=== PATIENT | male | born 1935 | race Caucasian/White ===

== ENCOUNTER 2020-03-05 13:48 | Inpatient (IN) ==
[2020-03-05] MEDS ORDERED: Naloxone 0.4 MG/ML INJ IVP PRN (17:18)
[2020-03-05 18:44] LABS: ABG Base Excess 13 mEq/L (-2 to 3); ABG HCO3 42 mEq/L (21-27); ABG Oxygen Saturation 100 % (95-98); ABG PCO2 87 mmHg (35-45); ABG PH 7.29 pH Units (7.32-7.45); ABG PO2 235 mmHg (85-104); ABG TCO2 45 mEq/L (20-26)
[2020-03-05] MEDS: Ipratropium/Albuterol Neb 3 ML IH SCH (20:21)
[2020-03-05] MEDS: Doxycycline 100 MG CAPSULE PO SCH (21:44)
[2020-03-05] MEDS: methylPREDNISolone 125 MG/2 ML VIAL IVP SCH (23:29)
[2020-03-06] MEDS: Ipratropium/Albuterol Neb 3 ML IH SCH ×7 (00:13→23:08)
[2020-03-06 00:26] LABS: ABG Base Excess 10 mEq/L (-2 to 3); ABG HCO3 39 mEq/L (21-27); ABG Oxygen Saturation 99 % (95-98); ABG PCO2 83 mmHg (35-45); ABG PH 7.28 pH Units (7.32-7.45); ABG PO2 183 mmHg (85-104); ABG TCO2 41 mEq/L (20-26); Blood Gas Pressure Support 8 cm H2O
[2020-03-06 05:19] LABS: Hemoglobin 10.6 g/dL (12.9-16.9); Immature Granulocytes % 0.4 % (0-4); Lymphocytes # 0.4 K/mcL (0.6-4.6); Lymphocytes % 12.5 %; Mean Corpuscular HGB Conc 30.3 g/dL (31.6-35.5); Mean Corpuscular Hemoglobin 30.8 pg (28.0-33.3); Mean Corpuscular Volume 101.7 fL (83.0-100.0); Mean Platelet Volume 9.7 fL (9.4-12.4); Monocytes % 1.1 %; Neutrophils # 2.4 K/mcL (1.6-8.9); Platelet Count 214 K/mcL (140-400); Red Blood Count 3.44 M/mcL (4.19-5.50); Red Cell Distribution Width 13.1 % (11.5-14.5); White Blood Count 2.8 K/mcL (4.3-11.1)
[2020-03-06 05:40] LABS: BUN/Creatinine Ratio 23 (6-26); Blood Urea Nitrogen 13 mg/dL (8-23); Calcium 9.7 mg/dL (8.6-10.3); Carbon Dioxide 35 mEq/L (23-29); Chloride 102 mEq/L (98-107); Glucose 109 mg/dL (70-105); Osmolality,Calculated 301 (280-300); Potassium 4.4 mEq/L (3.5-5.1); Sodium 145 mEq/L (136-145); eGFR For African Americans > 60 (> 60); eGFR For Non-African Americans > 60 (> 60)
[2020-03-06] MEDS ORDERED: Acetaminophen 325 MG TABLET PO PRN (08:09)
[2020-03-06] MEDS: Doxycycline 100 MG CAPSULE PO SCH ×2 (08:44→19:57)
[2020-03-06] MEDS: amLODIPine 5 MG TABLET PO SCH (08:44)
[2020-03-06] MEDS: Cholecalciferol (D-3) 1,000 UNIT (25MCG) TABLET PO SCH (08:44)
[2020-03-06] MEDS: methylPREDNISolone 125 MG/2 ML VIAL IVP SCH ×3 (08:45→23:41)
[2020-03-06] MEDS: cefTRIAXone 1,000 MG in Water for inj. (sterile) 10 ML IVP SCH (08:45)
[2020-03-06] MEDS: Fluticasone Propionate Nasal 50 MCG/SPRAY BOTTLE NS SCH (08:48)
[2020-03-06] MEDS: (Umeclidinium Brm/Vilanterol Tr [Anoro Ellipta 62.5-2 IH SCH (09:00)
[2020-03-06 20:29] LABS: ABG Base Excess 8 mEq/L (-2 to 3); ABG HCO3 34 mEq/L (21-27); ABG Oxygen Saturation 96 % (95-98); ABG PCO2 49 mmHg (35-45); ABG PH 7.45 pH Units (7.32-7.45); ABG PO2 82 mmHg (85-104); ABG TCO2 35 mEq/L (20-26); Blood Gas Pressure Support 6 cm H2O
[2020-03-07 01:12] LABS: ABG Base Excess 12 mEq/L (-2 to 3); ABG HCO3 37 mEq/L (21-27); ABG Oxygen Saturation 91 % (95-98); ABG PCO2 51 mmHg (35-45); ABG PH 7.47 pH Units (7.32-7.45); ABG PO2 59 mmHg (85-104); ABG TCO2 38 mEq/L (20-26)
[2020-03-07] MEDS: hydrOXYzine pamoate 25 MG CAPSULE PO PRN ×2 (01:22→19:58)
[2020-03-07 01:47] LABS: Hematocrit 29.6 % (37.5-50.1); Hemoglobin 9.5 g/dL (12.9-16.9); Immature Granulocytes % 0.5 % (0-4); Lymphocytes # 0.3 K/mcL (0.6-4.6); Lymphocytes % 5.3 %; Mean Corpuscular HGB Conc 32.1 g/dL (31.6-35.5); Mean Corpuscular Volume 96.7 fL (83.0-100.0); Mean Platelet Volume 9.4 fL (9.4-12.4); Monocytes # 0.1 K/mcL (0.0-1.3); Monocytes % 2.3 %; Neutrophils # 5.2 K/mcL (1.6-8.9); Platelet Count 201 K/mcL (140-400); Red Blood Count 3.06 M/mcL (4.19-5.50); Red Cell Distribution Width 12.8 % (11.5-14.5); Segmented Neutrophils % 91.9 %
[2020-03-07 01:49] LABS: White Blood Count 5.7 K/mcL (4.3-11.1)
[2020-03-07 02:05] LABS: BUN/Creatinine Ratio 44 (6-26); Blood Urea Nitrogen 36 mg/dL (8-23); Carbon Dioxide 33 mEq/L (23-29); Chloride 102 mEq/L (98-107); Glucose 130 mg/dL (70-105); Osmolality,Calculated 302 (280-300); Potassium 3.6 mEq/L (3.5-5.1); Sodium 141 mEq/L (136-145); eGFR For African Americans > 60 (> 60); eGFR For Non-African Americans > 60 (> 60)
[2020-03-07] MEDS: Ipratropium/Albuterol Neb 3 ML IH SCH ×5 (03:52→19:39)
[2020-03-07] MEDS: Cholecalciferol (D-3) 1,000 UNIT (25MCG) TABLET PO SCH (08:34)
[2020-03-07] MEDS: amLODIPine 5 MG TABLET PO SCH (08:34)
[2020-03-07] MEDS: cefTRIAXone 1,000 MG in Water for inj. (sterile) 10 ML IVP SCH (08:35)
[2020-03-07] MEDS: Doxycycline 100 MG CAPSULE PO SCH ×2 (08:35→19:58)
[2020-03-07] MEDS: Fluticasone Propionate Nasal 50 MCG/SPRAY BOTTLE NS SCH (08:36)
[2020-03-07] MEDS: methylPREDNISolone 125 MG/2 ML VIAL IVP SCH (08:36)
[2020-03-07] MEDS: (Umeclidinium Brm/Vilanterol Tr [Anoro Ellipta 62.5-2 IH SCH (08:56)
[2020-03-07] MEDS: MethylPREDNISolone 40 MG/ML VIAL IVP SCH (16:35)
[2020-03-07] MEDS: *HR* Heparin 5,000 UNIT/ML VIAL SQ SCH (16:40)
[2020-03-08] MEDS: Ipratropium/Albuterol Neb 3 ML IH SCH ×7 (00:12→23:19)
[2020-03-08] MEDS: MethylPREDNISolone 40 MG/ML VIAL IVP SCH ×3 (00:21→15:56)
[2020-03-08 03:19] LABS: Hematocrit 31.2 % (37.5-50.1); Hemoglobin 9.6 g/dL (12.9-16.9); Immature Granulocytes % 0.5 % (0-4); Lymphocytes # 0.2 K/mcL (0.6-4.6); Lymphocytes % 3.9 %; Mean Corpuscular HGB Conc 30.8 g/dL (31.6-35.5); Mean Corpuscular Hemoglobin 30.8 pg (28.0-33.3); Mean Platelet Volume 9.4 fL (9.4-12.4); Monocytes # 0.2 K/mcL (0.0-1.3); Monocytes % 2.5 %; Neutrophils # 5.5 K/mcL (1.6-8.9); Platelet Count 185 K/mcL (140-400); Red Blood Count 3.12 M/mcL (4.19-5.50); Red Cell Distribution Width 13.2 % (11.5-14.5); Segmented Neutrophils % 93.1 %; White Blood Count 5.9 K/mcL (4.3-11.1)
[2020-03-08 03:35] LABS: BUN/Creatinine Ratio 51 (6-26); Blood Urea Nitrogen 36 mg/dL (8-23); Calcium 9.3 mg/dL (8.6-10.3); Carbon Dioxide 33 mEq/L (23-29); Chloride 100 mEq/L (98-107); Glucose 108 mg/dL (70-105); Osmolality,Calculated 297 (280-300); Potassium 3.6 mEq/L (3.5-5.1); Sodium 139 mEq/L (136-145); eGFR For African Americans > 60 (> 60); eGFR For Non-African Americans > 60 (> 60)
[2020-03-08] MEDS: *HR* Heparin 5,000 UNIT/ML VIAL SQ SCH ×2 (05:37→17:33)
[2020-03-08] MEDS: Doxycycline 100 MG CAPSULE PO SCH ×2 (08:01→22:23)
[2020-03-08] MEDS: Cholecalciferol (D-3) 1,000 UNIT (25MCG) TABLET PO SCH (08:01)
[2020-03-08] MEDS: cefTRIAXone 1,000 MG in Water for inj. (sterile) 10 ML IVP SCH (08:01)
[2020-03-08] MEDS: amLODIPine 5 MG TABLET PO SCH (08:02)
[2020-03-08] MEDS: Fluticasone Propionate Nasal 50 MCG/SPRAY BOTTLE NS SCH (08:03)
[2020-03-08] MEDS ORDERED: 0.9 % Sodium Chloride 500 ML IVC ONE (12:57)
[2020-03-08] MEDS ORDERED: *HR* Metoprolol 5 MG/5 ML VIAL IVP ONE (17:08)
[2020-03-08] MEDS: hydrOXYzine pamoate 25 MG CAPSULE PO PRN (22:23)
[2020-03-09] MEDS: MethylPREDNISolone 40 MG/ML VIAL IVP SCH ×3 (00:18→16:14)
[2020-03-09] MEDS ORDERED: Melatonin 3 MG TABLET PO ONE (01:04)
[2020-03-09 01:33] LABS: Hematocrit 29.5 % (37.5-50.1); Hemoglobin 9.6 g/dL (12.9-16.9); Immature Granulocytes % 0.7 % (0-4); Lymphocytes % 7.1 %; Mean Corpuscular HGB Conc 32.5 g/dL (31.6-35.5); Mean Corpuscular Hemoglobin 31.4 pg (28.0-33.3); Mean Corpuscular Volume 96.4 fL (83.0-100.0); Mean Platelet Volume 9.5 fL (9.4-12.4); Monocytes % 4.9 %; Platelet Count 198 K/mcL (140-400); Red Blood Count 3.06 M/mcL (4.19-5.50); Red Cell Distribution Width 13.3 % (11.5-14.5); Segmented Neutrophils % 87.2 %
[2020-03-09 01:34] LABS: Basophils % 0.1 %; Lymphocytes # 0.5 K/mcL (0.6-4.6); Monocytes # 0.3 K/mcL (0.0-1.3); Neutrophils # 6.1 K/mcL (1.6-8.9)
[2020-03-09 01:58] LABS: BUN/Creatinine Ratio 48 (6-26); Blood Urea Nitrogen 27 mg/dL (8-23); Calcium 9.7 mg/dL (8.6-10.3); Carbon Dioxide 30 mEq/L (23-29); Chloride 102 mEq/L (98-107); Glucose 102 mg/dL (70-105); Osmolality,Calculated 293 (280-300); Potassium 4.2 mEq/L (3.5-5.1); Sodium 139 mEq/L (136-145); eGFR For African Americans > 60 (> 60); eGFR For Non-African Americans > 60 (> 60)
[2020-03-09] MEDS ORDERED: *HR* LORazepam 2 MG/ML VIAL IVP ONE (02:16)
[2020-03-09] MEDS: Ipratropium/Albuterol Neb 3 ML IH SCH ×5 (03:38→20:09)
[2020-03-09] MEDS ORDERED: flumazeniL 0.5 MG/5 ML VIAL IVP ONE ×2 (04:58→05:00)
[2020-03-09] MEDS: *HR* Heparin 5,000 UNIT/ML VIAL SQ SCH ×2 (06:23→17:56)
[2020-03-09] MEDS: cefTRIAXone 1,000 MG in Water for inj. (sterile) 10 ML IVP SCH (07:59)
[2020-03-09 08:00] LABS: ABG Base Excess 9 mEq/L (-2 to 3); ABG HCO3 35 mEq/L (21-27); ABG Oxygen Saturation 96 % (95-98); ABG PCO2 57 mmHg (35-45); ABG PH 7.41 pH Units (7.32-7.45); ABG PO2 84 mmHg (85-104); ABG TCO2 37 mEq/L (20-26); Blood Gas VT 450 cc
[2020-03-09] MEDS: Doxycycline 100 MG CAPSULE PO SCH (08:03)
[2020-03-09] MEDS: Fluticasone Propionate Nasal 50 MCG/SPRAY BOTTLE NS SCH (08:04)
[2020-03-09] MEDS: amLODIPine 5 MG TABLET PO SCH (08:04)
[2020-03-09] MEDS: Cholecalciferol (D-3) 1,000 UNIT (25MCG) TABLET PO SCH (08:08)
[2020-03-09] MEDS: Doxycycline 100 MG in 0.9 % Sodium Chloride Mini Bag 100 ML IVPB SCH (17:57)
[2020-03-09] MEDS: QUEtiapine Fumarate 25 MG TABLET PO SCH (22:04)
[2020-03-10] MEDS: Ipratropium/Albuterol Neb 3 ML IH SCH ×7 (00:20→23:55)
[2020-03-10] MEDS: MethylPREDNISolone 40 MG/ML VIAL IVP SCH ×3 (00:59→21:05)
[2020-03-10 01:05] LABS: Hematocrit 30.5 % (37.5-50.1); Hemoglobin 9.6 g/dL (12.9-16.9); Immature Granulocytes % 0.3 % (0-4); Lymphocytes # 0.2 K/mcL (0.6-4.6); Lymphocytes % 6.7 %; Mean Corpuscular HGB Conc 31.5 g/dL (31.6-35.5); Mean Corpuscular Hemoglobin 30.9 pg (28.0-33.3); Mean Corpuscular Volume 98.1 fL (83.0-100.0); Mean Platelet Volume 9.1 fL (9.4-12.4); Monocytes # 0.3 K/mcL (0.0-1.3); Monocytes % 7.9 %; Neutrophils # 2.8 K/mcL (1.6-8.9); Platelet Count 180 K/mcL (140-400); Red Blood Count 3.11 M/mcL (4.19-5.50); Red Cell Distribution Width 13.1 % (11.5-14.5); Segmented Neutrophils % 85.1 %
[2020-03-10 01:28] LABS: BUN/Creatinine Ratio 42 (6-26); Blood Urea Nitrogen 23 mg/dL (8-23); Calcium 9.3 mg/dL (8.6-10.3); Carbon Dioxide 33 mEq/L (23-29); Chloride 103 mEq/L (98-107); Glucose 95 mg/dL (70-105); Osmolality,Calculated 295 (280-300); Potassium 4.2 mEq/L (3.5-5.1); Sodium 141 mEq/L (136-145); White Blood Count 3.3 K/mcL (4.3-11.1); eGFR For African Americans > 60 (> 60); eGFR For Non-African Americans > 60 (> 60)
[2020-03-10] MEDS: Doxycycline 100 MG in 0.9 % Sodium Chloride Mini Bag 100 ML IVPB SCH ×2 (05:49→17:24)
[2020-03-10] MEDS: *HR* Heparin 5,000 UNIT/ML VIAL SQ SCH ×2 (05:51→17:24)
[2020-03-10] MEDS ORDERED: *HR* Metoprolol 5 MG/5 ML VIAL IVP ONE (08:08)
[2020-03-10] MEDS: amLODIPine 5 MG TABLET PO SCH (08:11)
[2020-03-10] MEDS: Fluticasone Propionate Nasal 50 MCG/SPRAY BOTTLE NS SCH (08:12)
[2020-03-10] MEDS: cefTRIAXone 1,000 MG in Water for inj. (sterile) 10 ML IVP SCH (08:13)
[2020-03-10] MEDS: Cholecalciferol (D-3) 1,000 UNIT (25MCG) TABLET PO SCH (08:15)
[2020-03-10] MEDS ORDERED: MethylPREDNISolone 40 MG/ML VIAL IVP SCH (11:30)
[2020-03-10] MEDS: QUEtiapine Fumarate 25 MG TABLET PO SCH (21:06)
[2020-03-11] MEDS ORDERED: Albuterol 2.5 MG/3 ML NEBULIZER ONE (01:51)
[2020-03-11 03:12] LABS: Hematocrit 30.5 % (37.5-50.1); Hemoglobin 9.5 g/dL (12.9-16.9); Immature Granulocytes % 0.8 % (0-4); Lymphocytes # 0.1 K/mcL (0.6-4.6); Lymphocytes % 3.8 %; Mean Corpuscular HGB Conc 31.1 g/dL (31.6-35.5); Mean Corpuscular Hemoglobin 30.2 pg (28.0-33.3); Mean Corpuscular Volume 96.8 fL (83.0-100.0); Mean Platelet Volume 9.5 fL (9.4-12.4); Monocytes # 0.1 K/mcL (0.0-1.3); Monocytes % 3.3 %; Neutrophils # 3.4 K/mcL (1.6-8.9); Platelet Count 204 K/mcL (140-400); Red Blood Count 3.15 M/mcL (4.19-5.50); Segmented Neutrophils % 92.1 %; White Blood Count 3.7 K/mcL (4.3-11.1)
[2020-03-11 03:31] LABS: BUN/Creatinine Ratio 52 (6-26); Blood Urea Nitrogen 34 mg/dL (8-23); Calcium 9.8 mg/dL (8.6-10.3); Carbon Dioxide 35 mEq/L (23-29); Chloride 101 mEq/L (98-107); Glucose 136 mg/dL (70-105); Osmolality,Calculated 300 (280-300); Potassium 4.3 mEq/L (3.5-5.1); Sodium 140 mEq/L (136-145); eGFR For African Americans > 60 (> 60); eGFR For Non-African Americans > 60 (> 60)
[2020-03-11] MEDS: Doxycycline 100 MG in 0.9 % Sodium Chloride Mini Bag 100 ML IVPB SCH ×2 (05:54→16:54)
[2020-03-11] MEDS: *HR* Heparin 5,000 UNIT/ML VIAL SQ SCH ×2 (05:55→16:54)
[2020-03-11] MEDS ORDERED: Levalbuterol Neb 1.25 MG/3 ML IH SCH (06:00)
[2020-03-11] MEDS: Levalbuterol Neb 1.25 MG/3 ML IH SCH ×5 (07:32→23:48)
[2020-03-11] MEDS: amLODIPine 5 MG TABLET PO SCH (07:45)
[2020-03-11] MEDS: cefTRIAXone 1,000 MG in Water for inj. (sterile) 10 ML IVP SCH (07:46)
[2020-03-11] MEDS: Cholecalciferol (D-3) 1,000 UNIT (25MCG) TABLET PO SCH (07:46)
[2020-03-11] MEDS: Fluticasone Propionate Nasal 50 MCG/SPRAY BOTTLE NS SCH (07:49)
[2020-03-11] MEDS: MethylPREDNISolone 40 MG/ML VIAL IVP SCH ×2 (09:29→19:56)
[2020-03-11] MEDS ORDERED: *HR* Metoprolol 5 MG/5 ML VIAL IVP ONE (13:40)
[2020-03-11] MEDS: Haloperidol Lactate 5 MG/ML VIAL IVP PRN (17:54)
[2020-03-11] MEDS: QUEtiapine Fumarate 25 MG TABLET PO SCH (19:56)
[2020-03-12] MEDS: Haloperidol Lactate 5 MG/ML VIAL IVP PRN ×2 (02:18→23:49)
[2020-03-12 03:17] LABS: BUN/Creatinine Ratio 47 (6-26); Blood Urea Nitrogen 27 mg/dL (8-23); Carbon Dioxide 34 mEq/L (23-29); Chloride 100 mEq/L (98-107); Glucose 125 mg/dL (70-105); Osmolality,Calculated 299 (280-300); Potassium 4.5 mEq/L (3.5-5.1); Sodium 141 mEq/L (136-145); eGFR For African Americans > 60 (> 60); eGFR For Non-African Americans > 60 (> 60)
[2020-03-12 03:35] LABS: Hematocrit 31.2 % (37.5-50.1); Hemoglobin 9.9 g/dL (12.9-16.9); Immature Granulocytes % 0.2 % (0-4); Lymphocytes # 0.1 K/mcL (0.6-4.6); Lymphocytes % 2.2 %; Mean Corpuscular HGB Conc 31.7 g/dL (31.6-35.5); Mean Corpuscular Hemoglobin 30.7 pg (28.0-33.3); Mean Corpuscular Volume 96.6 fL (83.0-100.0); Mean Platelet Volume 9.7 fL (9.4-12.4); Monocytes # 0.1 K/mcL (0.0-1.3); Monocytes % 1.8 %; Neutrophils # 4.7 K/mcL (1.6-8.9); Platelet Count 219 K/mcL (140-400); Red Blood Count 3.23 M/mcL (4.19-5.50); Segmented Neutrophils % 95.8 %; White Blood Count 4.9 K/mcL (4.3-11.1)
[2020-03-12] MEDS: Levalbuterol Neb 1.25 MG/3 ML IH SCH ×6 (03:51→23:29)
[2020-03-12 04:26] LABS: Platelet Estimate Normal (Normal)
[2020-03-12] MEDS: Doxycycline 100 MG in 0.9 % Sodium Chloride Mini Bag 100 ML IVPB SCH (05:16)
[2020-03-12] MEDS: *HR* Heparin 5,000 UNIT/ML VIAL SQ SCH ×2 (05:17→16:54)
[2020-03-12] MEDS: cefTRIAXone 1,000 MG in Water for inj. (sterile) 10 ML IVP SCH (08:13)
[2020-03-12] MEDS: amLODIPine 5 MG TABLET PO SCH (08:13)
[2020-03-12] MEDS: MethylPREDNISolone 40 MG/ML VIAL IVP SCH (08:13)
[2020-03-12] MEDS: Cholecalciferol (D-3) 1,000 UNIT (25MCG) TABLET PO SCH (08:13)
[2020-03-12] MEDS: Fluticasone Propionate Nasal 50 MCG/SPRAY BOTTLE NS SCH (08:15)
[2020-03-12] MEDS ORDERED: Ipratropium/Albuterol Neb 3 ML IH PRN (15:32)
[2020-03-12] MEDS: Metoprolol XL (24 HR) Succ 25 MG TAB.ER.24H PO SCH (16:54)
[2020-03-12] MEDS: QUEtiapine Fumarate 25 MG TABLET PO SCH (20:48)
[2020-03-13 00:57] LABS: Basophils % 0.1 %; Eosinophils % 0.1 %; Hemoglobin 10.2 g/dL (12.9-16.9); Immature Granulocytes % 0.3 % (0-4); Lymphocytes # 0.5 K/mcL (0.6-4.6); Lymphocytes % 5.5 %; Mean Corpuscular HGB Conc 31.9 g/dL (31.6-35.5); Mean Corpuscular Hemoglobin 30.6 pg (28.0-33.3); Mean Corpuscular Volume 96.1 fL (83.0-100.0); Mean Platelet Volume 9.3 fL (9.4-12.4); Monocytes # 0.6 K/mcL (0.0-1.3); Monocytes % 6.5 %; Neutrophils # 7.6 K/mcL (1.6-8.9); Platelet Count 225 K/mcL (140-400); Red Blood Count 3.33 M/mcL (4.19-5.50); Red Cell Distribution Width 13.1 % (11.5-14.5); Segmented Neutrophils % 87.5 %
[2020-03-13 00:58] LABS: White Blood Count 8.7 K/mcL (4.3-11.1)
[2020-03-13 01:12] LABS: BUN/Creatinine Ratio 41 (6-26); Blood Urea Nitrogen 24 mg/dL (8-23); Calcium 10.1 mg/dL (8.6-10.3); Carbon Dioxide 34 mEq/L (23-29); Chloride 100 mEq/L (98-107); Glucose 83 mg/dL (70-105); Osmolality,Calculated 289 (280-300); Potassium 4.2 mEq/L (3.5-5.1); Sodium 138 mEq/L (136-145); eGFR For African Americans > 60 (> 60); eGFR For Non-African Americans > 60 (> 60)
[2020-03-13] MEDS ORDERED: QUEtiapine Fumarate 25 MG TABLET PO ONE (01:16)
[2020-03-13] MEDS ORDERED: Haloperidol Lactate 5 MG/ML VIAL IM ONE (01:52)
[2020-03-13] MEDS: Levalbuterol Neb 1.25 MG/3 ML IH SCH ×3 (03:37→11:25)
[2020-03-13] MEDS: *HR* Heparin 5,000 UNIT/ML VIAL SQ SCH (05:17)
[2020-03-13] MEDS: Metoprolol XL (24 HR) Succ 25 MG TAB.ER.24H PO SCH (08:32)
[2020-03-13] MEDS: Cholecalciferol (D-3) 1,000 UNIT (25MCG) TABLET PO SCH (08:33)
[2020-03-13] MEDS: amLODIPine 5 MG TABLET PO SCH (08:33)
[2020-03-13] MEDS: Fluticasone Propionate Nasal 50 MCG/SPRAY BOTTLE NS SCH (08:37)
[2020-03-13] MEDS ORDERED: MethylPREDNISolone 40 MG/ML VIAL IVP SCH (09:00)
[2020-03-13 11:56] VITALS: BP 120/73
== END 2020-03-13 13:27 | DRG 193 ==
LOC: 2ANU → SUATTDRO 18:32
PROVIDERS: ADMIT Internal Medicine; ATTEND Internal Medicine